=== PATIENT | female | born 1975 | race Caucasian/White ===

== ENCOUNTER 2016-10-26 19:53 | Emergency (ER) | payer OTHER ==
[~2016-10-26] VITALS: Ht 165.1 cm; Wt 109.8 kg
[2016-10-26 20:38] LABS: BILIRUBIN,URINE NEGATIVE (NEGATIVE); UROBILINOGEN,URINE NORMAL (NEGATIVE)
[2016-10-26 20:39] LABS: APPEARANCE,URINE CLEAR (CLEAR); UA COLOR YELLOW (YELLOW)
--- NOTE | 2016-10-26 20:43 | ER.PDOC ---
General Chief Complaint: Flank Pain Stated Complaint: BACK PAIN Time seen by MD: 20:42 Source: patient History of Present Illness Initial Comments pt developed flank pain and dysuria Timing/Duration: 24 hours Severity/Quality: moderate Radiation: flank, back Associated Symptoms: back pain Allergies: Coded Allergies: NSAIDS (Non-Steroidal Anti-Inflamma (Verified Allergy, Unknown, 10/26/16) cephalexin (Verified Allergy, Unknown, 10/26/16) morphine (Verified Allergy, Unknown, Redness of skin, 10/26/16) prochlorperazine (Verified Allergy, Unknown, 10/26/16) Vital Signs First Vital Signs Date Time Temp Pulse Resp B/P (MAP) Pulse Ox O2 Delivery O2 Flow Rate FiO2 10/26/16 20:08 98.1 124 20 99 10/26/16 20:08 148/71 (96) Last Vital Signs Date Time Temp Pulse Resp B/P (MAP) Pulse Ox O2 Delivery O2 Flow Rate FiO2 10/26/16 20:08 98.1 124 20 148/71 (96) 99 Past Medical History Medical History: no pertinent history Surgical History: cholecystectomy, hysterectomy Constitutional: no symptoms reported Respiratory: no symptoms reported Cardiovascular: no symptoms reported Gastrointestinal: no symptoms reported Genitourinary: see HPI, dysuria, frequency, flank pain, hematuria Musculoskeletal: see HPI, back pain Skin: no symptoms reported Psychiatric/Neurological: no symptoms reported Endocrine: no symptoms reported Hematologic/Lymphatic: no symptoms reported Physical Exam General Appearance: Moderate Distress HEENT: PERRL/EOMI, Normal ENT Inspection, TMs Normal, Pharynx Normal Neck: Non-Tender, Full Range of Motion, Supple, Normal Inspection Respiratory: chest non-tender, lungs clear, normal breath sounds, no respiratory distress, no accessory muscle use Cardiovascular: Normal Peripheral Pulses, Regular Rate, Rhythm, No Edema, No Gallop, No JVD, No Murmur Back: No CVA Tenderness, No Vertebral Tenderness, Muscle Spasm, Other (left lower lumbar area) Extremities: Normal Range of Motion, Non-Tender, Normal Inspection, No Pedal Edema, No Calf Tenderness, Normal Capillary Refill, Pelvis Stable 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, No Motor/Sensory Deficits, Alert, Normal Mood/Affect, Oriented x 3 Skin: Normal Color, Warm/Dry Results/Orders Results/Orders Laboratory Tests Test 10/26/16 20:24 Urine Collection Type VOID Urine Color YELLOW (YELLOW) Urine Appearance CLEAR (CLEAR) Urine Bilirubin NEGATIVE MG/DL (NEGATIVE) Urine Ketones 15 mg/dL (NEGATIVE) Urine Specific [place] 1.005 (1.005-1.035) Urine pH 5 (5.0-6.0) Urine Protein NEGATIVE (NEGATIVE) Urine Urobilinogen NORMAL (NEGATIVE) Urine Nitrate NEGATIVE (NEGATIVE) Urine Leukocyte Esterase NEGATIVE (NEGATIVE) Urine Blood 10 TR (NEGATIVE) Urine Glucose NORMAL (NEGATIVE) EKG/XRAY/CT/US CT Comments: no intraabdominal abnormalities Course Blood Pressure Systolic: 148 Blood Pressure Diastolic: 71 Blood Pressure Mean: 96 Notes discussed labs and CT scan, UA Leuk estrace negative, nitrate negative Departure Time of Disposition: 22:47 Disposition: 01 HOME, SELF-CARE Impression: Primary Impression: Urinary tract infection Additional Impression: Low back pain Referrals: PCP,UNKNOWN (PCP) PRIMARY CARE PROVIDER Additional Instructions: follow up with PCP should symptoms fail to resolve or improve on bactrim and pyridium Problem Qualifiers Primary Impression: Urinary tract infection Urinary tract infection type: acute pyelonephritis Qualified Codes: N10 - Acute pyelonephritis Additional Impression: Low back pain Chronicity: acute Back pain laterality: left Sciatica presence: without sciatica Qualified Codes: M54.5 - Low back pain KITTY MCDONALD MD Oct 26, 2016 20:43
[2016-10-26] MEDS ORDERED: NUBAIN ONE (21:00)
[2016-10-26] MEDS ORDERED: PHENERGAN ONE (21:00)
[2016-10-26] MEDS ORDERED: PHENERGAN IM STA (21:03)
[2016-10-26] MEDS ORDERED: NUBAIN IM STA (21:03)
--- NOTE | 2016-10-26 22:05 | DIREP ---
PROCEDURE:CT ABDOMEN/PELVIS W/O CONTRAST COMPARISON:None. INDICATIONS:r/o kidney stone TECHNIQUE: Axial images were obtained through the abdomen and pelvis without the administration of IV contrast. Oral contrast was not administered. The examination is supplemented with sagittal and coronal reconstructions. FINDINGS: LOWER CHEST: The lung bases appear clear of focal consolidation. No evidence of pleural effusion. LIVER: Fatty infiltration. A focal lesion is not detected. BILIARY: Cholecystectomy. PANCREAS: No lesion, inflammatory changes, fluid collection, ductal dilatation, or atrophy. SPLEEN: No enlargement. No focal lesion. KIDNEYS: No mass. No calcification. No obstruction. ADRENALS: No mass or enlargement. AORTA/VASCULAR: No aneurysm or dissection. RETROPERITONEUM: No mass or adenopathy. BOWEL/MESENTERY: Limitations due to unopacified bowel. The appendix is visualized and has a normal appearance. No small bowel dilatation or bowel wall thickening. No mesenteric inflammatory changes. There is no free air or free fluid. ABDOMINAL WALL: No mass or hernia. PELVIS: Evaluation of the urinary bladder is limited due to an empty bladder. Hysterectomy. No visible mass. No adenopathy. BONES: No bony lesion or acute fracture. OTHER: Negative. CONCLUSION: 1. An acute intra-abdominal abnormality is not demonstrated. Dictated by: Cricket Alvarez M.D. on 10/26/2016 at 09:59 PM
[2016-10-26] MEDS ORDERED: BACTRIM DS PO STA (22:35)
[2016-10-26] MEDS ORDERED: PYRIDIUM PO STA (22:35)
[2016-10-26] MEDS ORDERED: BACTRIM DS ONE (22:39)
[2016-10-26] MEDS ORDERED: PYRIDIUM PO ONE (22:39)
[2016-10-26 22:57] VITALS: BP 118/47
== END 2016-10-26 22:55 | disposition home or self-care (01) ==
LOC: ER 19:53
DX: N10 Acute pyelonephritis (principal); M54.5 Low back pain
CPT/HCPCS: 74176; 81002; 96372 ×2; 99285; J2300; J2550